=== PATIENT | female | born 1980 | race Caucasian/White ===

== ENCOUNTER 2018-04-20 17:55 | Emergency (ER) | payer OTHER ==
[~2018-04-20 17:55] MED LIST: AZI250 PO; BACDS PO; CEP500 PO; CYCL10TA29 PO; FERR240T23 PO; GUAI-648 PO; HYDR-3104 PO; HYDR-385 PO; HYDR473S4 PO; LOR5 PO; MELO-207 PO; METH4TAB57 PO; MULT1CAP59 PO; NO ROUTINE MEDS; NOR5/325 PO; PER PO; PHEN118S56 PO; PHEN120S18 PO; ROBC PO
[2018-04-20 18:01] VITALS: BP 145/97
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
[2018-04-20] MEDS ORDERED: MULT1CAP59 PO (18:09)
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
[2018-04-20] MEDS ORDERED: OXYC-865 PO (19:17)
[2018-04-20] MEDS ORDERED: METH-543 PO (19:17)
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
[2018-04-20] MEDS ORDERED: METHOCARBAMOL 500 MG TAB PO ONE (19:25)
[2018-04-20] MEDS ORDERED: oxyCODONE/ACETAMIN 5/325MG TH 2 TAB/BOTTLE PO ONE (19:25)
== END 2018-04-20 19:43 | disposition home or self-care (01) ==
LOC: ER 18:19
DX: S16.1XXA Strain of muscle, fascia and tendon at neck level, initial encounter (principal); S39.012A Strain of muscle, fascia and tendon of lower back, initial encounter
CPT/HCPCS: 72125; 72131; 99284; L0172